=== PATIENT | female | born 1995 | race Caucasian/White ===

== ENCOUNTER 2017-06-08 10:46 | Inpatient (IN) | payer OTHER ==
[2017-06-11] MEDS ORDERED: OXYTOCIN 10 UNIT/ML 1 ML VIAL IM PRN (16:28)
[2017-06-11] MEDS ORDERED: TERBUTALINE 1 MG/ML VIAL SQ PRN (16:28)
[2017-06-11] MEDS ORDERED: METHYLERGONOVINE 0.2 MG/ML 1 ML AMP IM PRN (16:28)
[2017-06-11] MEDS ORDERED: CARBOPROST TROMETHAMINE 250 MCG/ML 1 ML AMP IM PRN (16:28)
[2017-06-11] MEDS ORDERED: LIDOCAINE 1% (PF) 10 MG/ML (30 ML SDV) SQ PRN (16:28)
[2017-06-11] MEDS ORDERED: OXYTOCIN 20 UNITS/1000 ML NS 1,000 ML IV SCH (16:30)
[2017-06-11] MEDS ORDERED: LACTATED RINGERS 1,000 ML IV SCH ×2 (16:30)
[2017-06-11] MEDS ORDERED: DINOPROSTONE 10 MG INSERT.ER VAGINAL ONE (16:34)
[2017-06-11 16:39] VITALS: BMI 23.3
[2017-06-11] MEDS ORDERED: BUTORPHANOL 1 MG/ML 1 ML VIAL IV PRN (17:59)
[2017-06-11] MEDS ORDERED: CALCIUM CARBONATE 500 MG CHEWABLE PO PRN (22:32)
[2017-06-11] MEDS ORDERED: BUTORPHANOL 1 MG/ML 1 ML VIAL ONE (23:00)
[2017-06-11] MEDS ORDERED: LACTATED RINGERS 1,000 ML BAG IV ONE (23:00)
[2017-06-12] MEDS ORDERED: CALCIUM CARBONATE 500 MG CHEWABLE PO ONE (00:55)
[2017-06-12] MEDS ORDERED: BUTORPHANOL 1 MG/ML 1 ML VIAL ONE (00:55)
[2017-06-12] MEDS ORDERED: fentaNYL (PF) 50 MCG/ML 5 ML AMP ONE (02:50)
[2017-06-12] MEDS ORDERED: BUPIVACAINE (PF) 0.25% 30 ML VIAL ONE (02:50)
[2017-06-12] MEDS ORDERED: SODIUM CHLORIDE 0.9% 100 ML BAG ONE (02:50)
[2017-06-12 05:33] LABS: Basophils % (A) 0 %; Eosinophils # (A) 0.2 k/uL (0-0.7); Eosinophils % (A) 1 %; HCT 36.5 % (34.0-46.0); HGB 11.9 gm/dL (11.4-16.0); Lymphocytes # (A) 1.9 k/uL (1.0-4.8); Lymphocytes % (A) 14 %; MCH 25.3 pg (25.0-35.0); MCHC 32.4 g/dL (31.0-37.0); Monocytes # (A) 0.6 k/uL (0-1.0); Monocytes % (A) 5 %; Neutrophils # (A) 10.9 k/uL (1.3-7.7); Neutrophils % (A) 78 %; Platelet Count 282 k/uL (150-450); Poikilocytosis Slight; RBC 4.68 m/uL (3.80-5.40); RDW 13.3 % (11.5-15.5); WBC 13.9 k/uL (3.8-10.6)
[2017-06-12] MEDS ORDERED: AMPICILLIN 1,000 MG in SODIUM CHLORIDE 0.9% 50 ML IVPB SCH ×2 (06:00→10:00)
[2017-06-12] MEDS ORDERED: ceFAZolin IN SWFI 2 GM/20 ML SYRINGE IVP ONE (06:15)
[2017-06-12] MEDS ORDERED: AMPICILLIN 2,000 MG in SODIUM CHLORIDE 0.9% 100 ML IVPB STA (06:22)
[2017-06-12] MEDS ORDERED: HYDROCORTISONE 2.5% RECTAL CREAM 30 GM TUBE RECTAL PRN (09:01)
[2017-06-12] MEDS ORDERED: WITCH HAZEL 1 EACH MED..PAD TOPICAL PRN (09:01)
[2017-06-12] MEDS ORDERED: diphenhydrAMINE 50 MG CAP PO PRN (09:01)
[2017-06-12] MEDS ORDERED: LANOLIN CREAM 5 GM TUBE TOPICAL PRN (09:01)
[2017-06-12] MEDS ORDERED: ACETAMINOPHEN TAB 325 MG TAB PO PRN (09:01)
[2017-06-12] MEDS ORDERED: Rhogam IMMUNE GLOBULIN 1,500 UNIT/1 ML IM ONE (09:01)
[2017-06-12] MEDS ORDERED: BENZOCAINE/MENTHOL SPRAY 1 GM/SPRAY AEROSOL TOPICAL PRN (09:01)
[2017-06-12] MEDS ORDERED: diphenhydrAMINE 50 MG/ML 1 ML VIAL IVP PRN ×2 (09:01)
[2017-06-12] MEDS ORDERED: diphenhydrAMINE 25 MG CAP PO PRN (09:01)
[2017-06-12] MEDS ORDERED: ZOLPIDEM 5 MG TAB PO PRN (09:01)
[2017-06-12] MEDS ORDERED: SIMETHICONE 80 MG CHEWABLE PO PRN (09:01)
[2017-06-12] MEDS ORDERED: OXYTOCIN 20 UNITS/1000 ML NS 1,000 ML IV SCH (09:15)
--- NOTE | 2017-06-12 12:53 | P.HPOB ---
History of Present Illness H&P Date: 06/11/17 Chief Complaint: Induction of labor 22 year old presents at 40 weeks 3 days for induction of labor. Her cervix is 1/50/-3. She is not bhupinder. heart tones 135-140 with moderate variability and reactive. She will have cervidil placed tonight and pitocin started in the morning. Review of Systems All systems: negative Constitutional: Denies chills, Denies fever Eyes: denies blurred vision, denies pain Ears, nose, mouth and throat: Denies headache, Denies sore throat Cardiovascular: Denies chest pain, Denies shortness of breath Respiratory: Denies cough Gastrointestinal: Denies abdominal pain, Denies diarrhea, Denies nausea, Denies vomiting Genitourinary: Denies dysuria, Denies hematuria Musculoskeletal: Denies myalgias Integumentary: Denies pruritus, Denies rash Neurological: Denies numbness, Denies weakness Psychiatric: Denies anxiety, Denies depression Endocrine: Denies fatigue, Denies weight change Past Medical History Past Medical History: No Reported History Additional Past Medical History / Comment(s): OB history: this is her first and she has had care with me since 14 weeks. A neg, abs neg , Rub Imm, treponemal ab neg, HEp B neg, HIV NR, toxo neg. normal 1hr GTT. GBS + . History of Any Multi-Drug Resistant Organisms: None Reported Past Surgical History: No Surgical Hx Reported Past Anesthesia/Blood Transfusion Reactions: No Reported Reaction Past Psychological History: No Psychological Hx Reported Smoking Status: Never smoker Past Alcohol Use History: None Reported Past Drug Use History: None Reported - Past Family History Mother Family Medical History: Diabetes Mellitus Medications and Allergies Home Medications Medication Instructions Recorded Confirmed Type No Known Home Medications [No 06/11/17 06/11/17 History Known Home Medications] Allergies Allergy/AdvReac Type Severity Reaction Status Date / Time No Known Allergies Allergy Verified 06/11/17 16:07 Exam Osteopathic Statement: *. No significant issues noted on an osteopathic structural exam other than those noted in the History and Physical/Consult. - Vital Signs Vital signs: Vital Signs Temp Pulse Resp BP Pulse Ox 06/12/17 11:01 75 16 122/75 06/12/17 10:32 73 16 121/73 06/12/17 10:02 83 16 121/81 06/12/17 09:47 82 16 117/68 06/12/17 09:32 82 16 131/75 06/12/17 09:17 81 16 128/66 06/12/17 09:02 98.9 F 90 16 119/68 06/11/17 16:07 99.0 F 78 16 115/73 97 Intake and Output 06/11/17 06/12/17 06/12/17 22:59 06:59 14:59 Intake Total 1300 1000 8.7 Output Total 500 Balance 1300 500 8.7 Intake: Intake, IV Titration 1000 1000 8.7 Amount Lactated Ringers 1,000 ml 1000 1000 @ 125 mls/hr IV .Q8H MAURICE Rx#:[id number] Oxytocin 20 Units/1000 ml 8.7 Ns 1,000 ml @ 1 MILLIUNIT/MIN 3 mls/hr IV .Q24H MAURICE Rx#:[id number] Oral 300 Output: Urine 500 Uretheral ([place]ills) 500 Other: # Voids 2 1 # Emeses 1 Weight 65.771 kg HEart: RRR Lungs: CTAB ABdomen: soft, nontender Extremeties: neg ag's Results Result Diagrams: 06/11/17 23:00 Abnormal Lab Results - Last 24 Hours (Table) 06/11/17 Range/Units 23:00 WBC 13.9 H (3.8-10.6) k/uL MCV 78.0 L (80.0-100.0) fL Neutrophils # 10.9 H (1.3-7.7) k/uL Assessment and Plan (1) Normal labor Current Visit: Yes Status: Acute Code(s): O80 - ENCOUNTER FOR FULL-TERM UNCOMPLICATED DELIVERY; Z37.9 - OUTCOME OF DELIVERY, UNSPECIFIED SNOMED Code(s ): 33349977 Plan: 1. induction of labor with cervidil and then amniotomy and pitocin 2. antibiotics for GBS ppx.
--- NOTE | 2017-06-12 12:58 | P.PROBDLV ---
Vaginal Delivery Note - . Vaginal Delivery Note: 22-year-old presented at 40 weeks and 3 days for induction of labor. Her cervix was 1 cm dilated, 50% effaced, and -3 station. She was not bhupinder. heart tones 130-135 with moderate variability and reactive. Cervidil was placed around 5:50 PM. It had to be removed at 1 AM because she was bhupinder too much and in a great deal of pain with them. Her cervix at that time was 2 cm dilated, 80% effaced and -2 station. At 2:30 AM she was 3 cm dilated and requesting epidural. She did get an epidural and was comfortable with this. Amniotomy was performed at 7:52 AM and clear fluid was noted and at that time she was 9 cm dilated. She quickly progressed to complete, pushed and delivered a viable female over midline episiotomy under epidural anesthesia. Head delivered OA, nuchal cord 1 easily reduced, anterior shoulder delivered gentle downward traction followed by posterior shoulder and rest of body. Nose and mouth bulb suctioned, cord clamped and cut, placed on mother's abdomen. Apgars 8, 9, weight 7 lbs. 3 oz. Placenta delivered spontaneously, intact with three-vessel cord at 8:47 AM. Vagina, cervix, perineum inspected. Second-degree midline episiotomy was repaired with 3-0 Vicryl. Estimated blood loss 200 mL. Mother and baby in stable condition.
[2017-06-12] MEDS: IBUPROFEN 600 MG TAB PO PRN ×2 (14:12→20:03)
[2017-06-12] MEDS: HYDROcodone/APAP 5-325MG 1 EACH TAB PO PRN ×2 (16:19→21:20)
[2017-06-12] MEDS: SENNOSIDES-DOCUSATE SODIUM 1 EACH TAB PO SCH (20:03)
[2017-06-13] MEDS: IBUPROFEN 600 MG TAB PO PRN ×2 (04:31→23:45)
--- NOTE | 2017-06-13 06:22 | P.DS ---
Providers Date of admission: 06/11/17 15:59 Expected date of discharge: 06/13/17 Attending physician: Corrine Claros Primary care physician: Bettina Curiel - Discharge Diagnosis(es) (1) Normal labor Current Visit: Yes Status: Resolved (2) Normal vaginal delivery Current Visit: Yes Status: Acute Hospital Course: Patient presented for induction of labor. She underwent a normal vaginal delivery. Her course was uncomplicated. She denies headache, nausea , vomiting, chest pain, shortness of breath or calf pain. She is ambulating voiding without difficulty. She'll be discharged home day #1 in stable condition to follow-up with me in 6 weeks. Plan - Discharge Summary New Discharge Prescriptions: New Ibuprofen [Motrin] 600 mg PO Q6HR PRN #30 tab PRN Reason: Mild Pain Or Fever >= 100.5 Discharge Medication List Ibuprofen [Motrin] 600 mg PO Q6HR PRN #30 tab 06/13/17 [Rx] Follow up Appointment(s)/Referral(s): Corrine Claros DO [Doctor of Osteopathic Medicine] - 6 Weeks Discharge Disposition: HOME SELF-CARE
[2017-06-13] MEDS: SENNOSIDES-DOCUSATE SODIUM 1 EACH TAB PO SCH (08:27)
[2017-06-14 01:07] VITALS: RESP 16
[2017-06-14] MEDS: SENNOSIDES-DOCUSATE SODIUM 1 EACH TAB PO SCH ×2 (01:15→10:27)
--- NOTE | 2017-06-14 06:49 | P.PNOBGVD ---
Subjective - Subjective Patient reports: Reports appetite normal, Reports voiding normally, Reports pain well controlled, Reports ambulating normally : doing well Objective - Latest Vital Signs Latest vital signs: Vital Signs Temp Pulse Resp BP 06/14/17 00:00 98.8 F 79 16 121/79 06/13/17 16:00 98.3 F 88 18 128/72 06/13/17 08:00 98.4 F 98 16 128/87 Intake and Output 06/13/17 06/13/17 06/14/17 14:59 22:59 06:59 Intake Total 500 Balance 500 Intake: Oral 500 Other: # Voids 1 1 2 - Exam Lungs: bilateral: normal Chest: Normal S1, Normal S2 Extremities: Present: normal Abdomen: Present: normal appearance, soft Uterus: Present: normal, firm Assessment and Plan Assessment: Patient is resting without complaints. She apparently was going to go home yesterday however her baby was Therefore She Decided to Stay. She Is without New Complaints. Uterus Is Firm Nontender She's Having Normal Lochia. (1) Normal vaginal delivery Current Visit: Yes Status: Acute Code(s): O80 - ENCOUNTER FOR FULL-TERM UNCOMPLICATED DELIVERY SNOMED Code(s): 10075877
[2017-06-14] MEDS: IBUPROFEN 600 MG TAB PO PRN (08:48)
[2017-06-14 09:11] VITALS: BP 113/70; PULSE 65; TEMP 98.4
== END 2017-06-14 13:45 | disposition home or self-care (01) | DRG 775 ==
LOC: 4FBP 06-11 15:59
PROVIDERS: ADMIT Obstetrics & Gynecology; ATTEND Obstetrics & Gynecology
PROC: 10E0XZZ Delivery of Products of Conception, External Approach (ICD-10-PCS; principal; 2017-06-12)
PROC: 0W8NXZZ Division of Female Perineum, External Approach (ICD-10-PCS; 2017-06-12)
PROC: 00HU33Z Insertion of Infusion Device into Spinal Canal, Percutaneous Approach (ICD-10-PCS; 2017-06-12)
PROC: 3E0R3BZ Introduction of Anesthetic Agent into Spinal Canal, Percutaneous Approach (ICD-10-PCS; 2017-06-12)
PROC: 3E0234Z Introduction of Serum, Toxoid and Vaccine into Muscle, Percutaneous Approach (ICD-10-PCS; 2017-06-12)
DX: O69.81X0 Labor and delivery complicated by cord around neck, without compression, not applicable or unspecified (principal); O26.893 Other specified pregnancy related conditions, third trimester; O99.824 Streptococcus B carrier state complicating childbirth; Z37.0 Single live birth; Z3A.40 40 weeks gestation of pregnancy; Z67.11 Type A blood, Rh negative
CPT/HCPCS: 85025; 85461; 88307